=== PATIENT | female | born 1970 | race Two or more races ===

== ENCOUNTER 2016-05-12 23:39 | Emergency (ER) | payer MEDICAID ==
[~2016-05-12] VITALS: Ht 170.2 cm; Wt 99.8 kg
[~2016-05-12 23:39] MED LIST: ATE50T PO; CLON0.2T PO; HYDR-531 PO; INSLISPI; RANI150C11 PO
[2016-05-13] MEDS ORDERED: HYDROcodone-ACET 10/325MG TAB PO ONE (01:30)
[2016-05-13] MEDS ORDERED: MORPHINE SULFATE 4 MG/ML SYRG IV ONE (05:45)
[2016-05-13] MEDS ORDERED: ONDANSETRON HCL 4 MG/2 ML VIAL IV ONE (05:45)
[2016-05-13] MEDS ORDERED: LIDOCAINE W/ EPINEPHRINE 1% 20ML VIAL SC ONE (06:45)
[2016-05-13] MEDS ORDERED: cloNIDine HCL 0.1 MG TAB PO ONE (08:30)
[2016-05-13 09:16] VITALS: BP 155/91
== END 2016-05-13 09:26 | disposition home or self-care (01) ==
LOC: EDBD 23:39 → ER 23:40
DX: S01.01XA Laceration without foreign body of scalp, initial encounter (principal); I10 Essential (primary) hypertension; F10.10 Alcohol abuse, uncomplicated; I20.9 Angina pectoris, unspecified; F17.210 Nicotine dependence, cigarettes, uncomplicated; E11.9 Type 2 diabetes mellitus without complications; Z86.73 Personal history of transient ischemic attack (TIA), and cerebral infarction without residual deficits; W19.XXXA Unspecified fall, initial encounter; Y93.89 Activity, other specified; Y99.8 Other external cause status; Y92.89 Other specified places as the place of occurrence of the external cause
CPT/HCPCS: 12002; 70450; 72125; 73070; 73502; 96374; 96375; 99284; J2270; J2405